=== PATIENT | female | born 1970 | race Caucasian/White ===

== ENCOUNTER 2020-02-07 19:04 | Emergency (ER) | payer MEDICARE ==
[~2020-02-07] VITALS: Ht 149.9 cm; Wt 53.1 kg
[2020-02-07 19:06] VITALS: Ht 149.9 cm; Wt 53.1 kg
[2020-02-07] MEDS ORDERED: SILVADENE20 GM TP (19:46)
[2020-02-07] MEDS ORDERED: HYDROCODON-ACE1 EA10 PO (19:46)
[2020-02-07 20:52] VITALS: BP 153/91
== END 2020-02-07 20:52 | disposition home or self-care (01) ==
LOC: D.ER 19:04
DX: T25.222A Burn of second degree of left foot, initial encounter (principal); T25.221A Burn of second degree of right foot, initial encounter; X12.XXXA Contact with other hot fluids, initial encounter; Y93.9 Activity, unspecified; Y92.9 Unspecified place or not applicable